=== PATIENT | male | born 1965 | race African-American/Black ===

== ENCOUNTER 2021-07-02 11:34 | Emergency (ER) | payer OTHER ==
[2021-07-02 11:45] VITALS: BP 141/71; PULSE 65; TEMP 97.5; BMI 32.4
== END 2021-07-02 12:13 | disposition home or self-care (01) ==
LOC: FER 11:34
DX: S83.91XA Sprain of unspecified site of right knee, initial encounter (principal); X50.1XXA Overexertion from prolonged static or awkward postures, initial encounter
CPT/HCPCS: 99281-25